=== PATIENT | female | born 1995 | race Hispanic/Latino ===

== ENCOUNTER 2021-04-02 16:41 | Emergency (ER) | payer OTHER, SELFPAY ==
--- NOTE | ~2021-04-02 | CT_ITS ---
EXAMINATION: CT abdomen pelvis w con EXAM DATE: 04/02/2021 19:29 INDICATION: Low abd pain, flank pain. TECHNIQUE: Spiral CT of the abdomen and pelvis was performed following intravenous injection of 100 m L Omnipaque 350. Axial, coronal and sagittal images of the abdomen and pelvis were reviewed. The do se-length product (DLP) for this examination was 612.62 mGy-cm. The exposure was tailored according to patient size (auto mA exposure control), and iterative reconstruction (ASIR) was used as additiona l dose reduction technique. There is no prior study for comparison. FINDINGS: The liver, spleen, adrenal glands and pancreas are unremarkable. Gallbladder is unremarkab le. No biliary obstruction. Portal and splenic veins are patent. Kidneys enhance symmetrically. T here is no hydronephrosis. Evidence of recently ruptured right ovarian cyst. The bladder is unrema rkable. There is no retroperitoneal or pelvic lymphadenopathy. The appendix is normal. The stomach and small bowel are unremarkable. There is expected amount of c olonic stool. No free intraperitoneal gas. The heart is normal in size. There are no pericardial or pleural effusions. The lung bases are unremarkable. There is bilateral sacroiliac sclerosis wit h some gas in the sacroiliac joints, arthritis and chronic sacroiliitis. IMPRESSION: 1. Evidence of recently ruptured right ovarian follicle, physiologic or hemorrhagic cyst. 2. Chronic symmetric sacroiliitis, and mild sacroiliac arthritis. Reviewed, dictated and finalized at location A. IMPRESSION: 1. Evidence of recently ruptured right ovarian follicle, physiologic or hemorr hagic cyst. 2. Chronic symmetric sacroiliitis, and mild sacroiliac arthritis.
[2021-04-02 17:10] VITALS: BP 140/78; PULSE 88; RESP 16; TEMP 36.3; O2SAT 100
[2021-04-02 17:38] LABS: Add Urine Microscopic? NO; Appearance Urine Clear (Clear); Bilirubin Urine Negative (Negative); Blood Urine Negative (Negative); Color Urine Straw (Yellow); Glucose Urine UA Negative (Negative); Ketones Urine Negative (Negative); Leukocyte Esterase Ur Negative LEU/UL (Negative); Nitrate Urine Negative (Negative); Protein Urine Negative (Negative); Specific Grav Ur 1.011 (1.001-1.035); Urobilinogen Urine Negative mg/dL (<2.0)
[2021-04-02 18:32] LABS: Basophils Percent Auto 0.6 % (0.2-1.2); Eosinophils Absolute Auto 0.2 K/mm3 (0-0.3); Eosinophils Percent Auto 2.4 % (0-4.4); Hematocrit 37.3 % (37.0-47.0); Hemoglobin 12.3 g/dL (12.0-15.0); Immature Granulocyte Absolute 0.02 K/mm3 (0.00-0.031); Immature Granulocyte Percent A 0.3 % (0-0.5); Lymphocytes Absolute Auto 2.67 K/mm3 (0.9-3.2); Lymphocytes Percent Auto 39.7 % (18.3-44.2); Mean Corpuscular Hemoglobin 26.5 pg (26-34); Mean Corpuscular Volume 80.4 fl (80-100); Monocytes Absolute Auto 0.4 K/mm3 (0.1-0.6); Monocytes Percent Auto 5.8 % (2.6-8.5); Neutrophils Absolute Auto 3.5 K/mm3 (1.3-6.7); Neutrophils Percent Auto 51.2 % (45.5-73.1); Platelet Count Result 311 k/mm3 (150-375); Red Blood Count 4.64 M/mm3 (4.2-5.4); Red Cell Distribution Width 16.6 % (11.5-14.5); White Blood Count 6.7 K/mm3 (4.5-10.0)
--- NOTE | 2021-04-02 18:37 | ED.ABDPAIN ---
HPI - Abdominal Pain General Chief Complaint: Urogenital-Female Stated Complaint: Back pain Time Seen by Provider: 04/02/21 17:52 Source: patient Mode of arrival: ambulatory Limitations: no limitations History of Present Illness HPI narrative: This is a 25 year old female that presents to the ER for flank pain present over the last couple of weeks. Associated with crampy lower abdominal pain. Reports the pain has been constant. She has not taken any pain medication for this. No known alleviating or exacerbating factors. Reports she is 3 months . Denies fever, vomiting, dysuria, hematuria, or diarrhea. Related Data Allergies Allergy/AdvReac Type Severity Reaction Status Date / Time No Known Allergies Allergy Unverified 11/23/14 14:33 Review of Systems Review of Systems: CONSTITUTIONAL: Denies fever GASTROINTESTINAL: Reports abdominal pain, nausea. Denies vomiting, or diarrhea. GENITOURINARY: Denies dysuria or hematuria. All systems reviewed & are unremarkable except as noted in HPI and below PMFSH Past Medical History Medical History (Updated 04/02/21 @ 19:50 by Mary Boateng PA-C) No active medical problems Social History Social History (Updated 04/02/21 @ 18:40 by Mary Boateng PA-C) Substance use: never Exam Narrative: GENERAL: Well-appearing, well-nourished, and in no acute distress. HEAD: Normocephalic, atraumatic. EYES: EOMI. CHEST: Clear to auscultation. No respiratory distress. No wheezes rales or rhonchi HEART: Regular rate and rhythm. No murmur heard. Normal peripheral pulses. ABDOMEN: Soft, nondistended, normal active bowel sounds. Mild tenderness to palpation throughout the lower abdomen, without guarding. No CVA tenderness EXTREMITIES: Normal range of motion. No edema. SKIN: Warm, dry, no rash. NEURO: No focal deficits. Alert and oriented x3. PSYCH: Normal mood and affect Course Vital Signs Vital signs: Vital Signs Temperature 97.4 F L 04/02/21 17:10 Pulse Rate 88 04/02/21 17:10 Respiratory Rate 16 04/02/21 17:10 Blood Pressure 140/78 04/02/21 17:10 Pulse Oximetry 100 04/02/21 17:10 Temperature 97.4 F L 04/02/21 17:10 Pulse Rate 88 04/02/21 17:10 Respiratory Rate 16 04/02/21 17:10 Blood Pressure 140/78 04/02/21 17:10 Pulse Oximetry 100 04/02/21 17:10 MDM - Abdominal Pain MDM Narrative Medical decision making narrative: Patient presents the emergency department for lower abdominal pain and flank pain. She is afebrile and nontoxic-appearing. Vitals are stable. CBC and metabolic panel without concerning findings. UA without evidence of infection. Bedside test is negative. CT scan of the abdomen and pelvis shows evidence of a recently ruptured right ovarian cyst. 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 Patient was updated on case findings. She reports improvement with Toradol. She is stable and felt appropriate for further outpatient evaluation. 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 She was given warnings to return to the ER Lab Data Attestation: I reviewed the patient's lab results. Result diagrams: 04/02/21 18:25 04/02/21 18:25 Labs: Lab Results 04/02/21 04/02/21 04/02/21 Range/Units 17:24 18:25 18:25 WBC 6.7 (4.5-10.0) K/mm3 RBC 4.64 (4.2-5.4) M/mm3 Hgb 12.3 (12.0-15.0) g/dL Hct 37.3 (37.0-47.0) % MCV 80.4 (80-100) fl MCH 26.5 (26-34) pg MCHC 33.0 (32-36) g/dl RDW 16.6 H (11.5-14.5) % Plt Count 311 (150-375) k/mm3 MPV 9.0 (7.4-10.4) fl Immature Gran % (Auto) 0.3 (0-0.5) % Neut % (Auto) 51.2 (45.5-73.1) % Lymph % (Auto) 39.7 (18.3-44.2) % Nye % (Auto) 5.8 (2.6-8.5) % Eos % (Auto) 2.4 (0-4.4) % Baso % (Auto) 0.6 (0.2-1.2) % Lymph # (Auto) 2.67 (0.9-3.2) K/mm3 Nye # (Auto) 0.4 (0.1-0.6) K/mm3 Eos # (Auto) 0.2 (0-0.3) K/mm3 Bas
[2021-04-02] MEDS: KETOROLAC 30 MG/ML VIAL (*BKC) IV PUSH (18:42)
[2021-04-02 18:44] LABS: Anion Gap 11 mmol/L (8-16); Blood Urea Nitrogen 8 mg/dL (7-17); Calcium 9.5 mg/dL (8.4-10.2); Carbon Dioxide 24 mmol/L (22-30); Chloride 106 mmol/L (98-107); Estimated CRCL calculation 144 ml/min; Estimated Glomerular Filt Rate > 60; Glucose 90 mg/dL (65-110); Potassium 3.7 mmol/L (3.4-5.0); Sodium 141 mmol/L (137-145)
[2021-04-02 19:32] LABS: Alanine Aminotransferase 26 U/L (4-35); Albumin Level 5.2 g/dL (3.5-5.1); Alkaline Phosphatase 95 U/L (38-126); Aspartate Amino Transferase 28 U/L (14-36); Bilirubin,Total 0.3 mg/dL (0.2-1.3); Lipase 228 U/L (23-300)
[2021-04-02 20:12] VITALS: BP 136/78; PULSE 78; RESP 18; O2SAT 100
== END 2021-04-02 20:13 | disposition home or self-care (01) ==
PROVIDERS: Physician Assistant; Emergency Provider Family Medicine
DX: N83.201 Unspecified ovarian cyst, right side (principal); M46.1 Sacroiliitis, not elsewhere classified
CPT/HCPCS: 36415; 74177; 80048; 80076; 81003; 81025; 83690; 85025; 96374; 99284; J1885; Q9967